=== PATIENT | female | born 1985 | race Caucasian/White ===

== ENCOUNTER 2017-01-13 08:49 | Emergency (ER) | payer OTHER ==
[~2017-01-13] VITALS: Ht 167.6 cm; Wt 85.6 kg
[2017-01-13 08:54] VITALS: TEMP 36.9; Ht 167.6 cm; Wt 85.6 kg
[2017-01-13 09:28] VITALS: O2SAT 96
[2017-01-13 09:55] LABS: BASO % 0.3 %; BASO ABS # 0.03 K/uL (0-0.2); COMPLETE YES; EOS % 0.3 %; HEMATOCRIT 38.1 % (37-47); IG% 0.3 %; LYMPH ABS # 1.34 K/uL (1.2-3.4); MEAN CELL VOLUME 84.5 fL (80-100); MEAN CORPUSCULAR HEMOGLOBIN 27.9 pg (25-34); MEAN CORPUSCULAR HGB CONC 33.1 g/dl (32-36); MEAN PLATELET VOLUME 10.8 fL (7.4-10.4); MONO % 7.6 %; NEUT % 77.5 %; PLATELET COUNT 338 K/uL (130-400); RED BLOOD COUNT 4.51 M/uL (4.2-5.4); WHITE BLOOD COUNT 9.57 K/uL (4.8-10.8)
[2017-01-13] MEDS ORDERED: MULT-506 PO (09:56)
[2017-01-13] MEDS ORDERED: FIBE1CAP PO (09:56)
[2017-01-13] MEDS ORDERED: FOLI1TAB7 PO (09:56)
[2017-01-13 10:03] LABS: PARTIAL THROMBOPLASTIN RATIO 1.1; PROTHROMBIN TIME (PATIENT) 10.7 SECONDS (9.0-12.0)
[2017-01-13 10:17] LABS: BUN/CREATININE RATIO 9.5 (10-20); CALCIUM 8.4 mg/dl (8.5-10.1); CREATININE 0.55 mg/dl (0.60-1.20); POTASSIUM 3.4 mmol/L (3.5-5.1)
[2017-01-13 10:32] LABS: ALB/GLOB RATIO 0.7 (0.9-2)
[2017-01-13] MEDS ORDERED: POTASSIUM CHLORIDE 10 MEQ TABCR PO STA (10:35)
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
[2017-01-13 11:22] VITALS: BP 110/67; PULSE 74; O2SAT 100
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
== END 2017-01-13 11:36 | disposition home or self-care (01) ==
LOC: C.EDB 08:51
DX: R51 Headache (principal); O26.892 Other specified pregnancy related conditions, second trimester; Z3A.26 26 weeks gestation of pregnancy; Z87.891 Personal history of nicotine dependence; Z79.899 Other long term (current) drug therapy; V43.52XA Car driver injured in collision with other type car in traffic accident, initial encounter

== ENCOUNTER 2017-01-13 11:42 | Outpatient (CLI) | payer OTHER ==
[~2017-01-13] VITALS: Ht 167.6 cm; Wt 85.5 kg
[~2017-01-13 11:42] MED LIST: FIBE1CAP PO; FOLI1TAB7 PO; MULT-506 PO
[2017-01-13 12:23] VITALS: Ht 167.6 cm; Wt 85.5 kg
[2017-01-13] MEDS ORDERED: LACTATED RINGER'S 1000ML 500 ML IV ONE (13:40)
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
== END 2017-01-13 15:35 | disposition home or self-care (01) ==
LOC: C.LD 11:42 → C.OPB 11:42
PROVIDERS: ATTEND Obstetrics & Gynecology
DX: O62.9 Abnormality of forces of labor, unspecified (principal); V43.52XA Car driver injured in collision with other type car in traffic accident, initial encounter; Z3A.26 26 weeks gestation of pregnancy

== ENCOUNTER 2017-04-22 07:32 | Inpatient (IN) | payer BC ==
[~2017-04-22] VITALS: Ht 167.6 cm; Wt 93.2 kg
[2017-04-22] MEDS ORDERED: OXYTOCIN 30 UNITS/500ML NSS IV ONE (08:16)
[2017-04-22] MEDS ORDERED: LACTATED RINGER'S 1000ML 1,000 ML IV SCH (08:41)
[2017-04-22] MEDS ORDERED: BENZOCAINE 20% AER SPR 82.5 GM CAN EXT PRN (08:45)
[2017-04-22] MEDS ORDERED: OXYCODONE/ACETAMINOPHEN 5-325 TAB PO PRN (08:45)
[2017-04-22] MEDS ORDERED: ACETAMINOPHEN 325 MG TAB PO PRN (08:45)
[2017-04-22] MEDS ORDERED: HYDROCORTISONE ACETATE 25 MG SUPP PR PRN (08:45)
[2017-04-22] MEDS ORDERED: OXYTOCIN 30 UNITS/500ML NSS IV PRN (08:45)
[2017-04-22] MEDS ORDERED: SUPERCREAM 0.870 % 15GM JAR EXT PRN (08:45)
[2017-04-22] MEDS ORDERED: LANOLIN OINT EXT PRN ×2 (08:45)
[2017-04-22] MEDS ORDERED: ACETAMINOPHEN/CODEINE 300/30MG TAB PO PRN ×2 (08:45)
--- NOTE | 2017-04-22 08:52 | Progress Note ---
Progress Note Date of Service Apr 22, 2017. Progress Note labor Note Pt arrived at L&D in labor FHR; CAT1 Ctx 1-2mins VE Ant lip/100/-1 station with urge to push IV access obtained, AROM- clear Pt pushed and quickly delivered details of delivery is in delivery Note
--- NOTE | 2017-04-22 08:57 | HISTORY & PHYSICAL EXAMINATION ---
DATE OF ADMISSION: 04/22/2017 HISTORY OF PRESENT ILLNESS: The patient is a 31-year-old G3, P2, due date 04/20/2017 making her 40 weeks and 2 days who presented to labor and delivery in labor. On arrival to labor and delivery she had no shortness of breath, no chills, no fever. Pelvic exam done showed she was 9 cm dilated, 100% effaced and -1 station. She was immediately admitted in anticipation of labor. heart rate was category 1. COURSE: Has been unremarkable. LABS: Blood type is Rh positive, GBS negative. HIV, RPR all nonreactive. PAST MEDICAL HISTORY: Unremarkable. PAST SURGICAL HISTORY: Unremarkable. 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 ALLERGIES: THE PATIENT IS ALLERGIC TO SULFA DRUGS. PHYSICAL EXAMINATION: GENERAL: Well-developed, well-nourished white female in no acute distress. HEART: S1, S2, regular rhythm and rate. LUNGS: Clear to auscultation bilaterally. HEART: S1, S2, regular rhythm and rate. ABDOMEN: Gravid. heart rate is category 1. PELVIC EXAMINATION: 9 cm, 70%, -1 station. EXTREMITIES: No cyanosis, clubbing or edema. ASSESSMENT AND PLAN: A 31-year-old G3, P2 at 40 and 2 weeks in labor. Plan is to admit patient and anticipate vaginal delivery.
--- NOTE | 2017-04-22 09:08 | DELIVERY SUMMARY ---
DELIVERY NOTE DATE OF DELIVERY: 04/22/2017 The patient delivered a live male in left occiput anterior presentation. There was no nuchal cord. There was terminal meconium. Cord blood was obtained as well as cord gas. The infants Apgars 8 and 9. Placenta was spontaneously delivered. On inspection of the placenta appeared grossly normal. Estimated blood loss 400 mL. Inspection of the perineum shows a midline first degree laceration, which required 2 stitches of 2-0 Vicryl. There was good hemostasis. All instruments were removed from the vagina and accounted for x2 including sponges and stitches. The patient is doing well as well as infant is stable in recovery. I attest to the content of the Intraoperative Record and any orders documented therein. Any exceptions are noted below. TAID
[2017-04-22 09:27] LABS: HEMATOCRIT 36.2 % (37-47); MEAN CELL VOLUME 80.4 fL (80-100); MEAN CORPUSCULAR HGB CONC 32.3 g/dl (32-36); MEAN PLATELET VOLUME 10.8 fL (7.4-10.4); PLATELET COUNT 250 K/uL (130-400); WHITE BLOOD COUNT 17.21 K/uL (4.8-10.8)
[2017-04-22 10:18] VITALS: Ht 167.6 cm; Wt 93.2 kg
[2017-04-22 15:25] VITALS: BP 108/67; PULSE 76; TEMP 36.7
[2017-04-22] MEDS: DOCUSATE SODIUM 100 MG CAP PO SCH (19:35)
[2017-04-22 19:40] VITALS: BP 119/75; PULSE 90; TEMP 36.8; O2SAT 98
[2017-04-22 23:30] VITALS: BP 122/78; PULSE 83; TEMP 36.6; O2SAT 98
[2017-04-22] MEDS: IBUPROFEN 600 MG TAB PO PRN (23:37)
[2017-04-23 04:00] VITALS: BP 109/60; PULSE 67; TEMP 36.7; O2SAT 98
--- NOTE | 2017-04-23 07:00 | OB/GYN Progress Note ---
EMERGENCY REGISTRAR Progress Note Date of Service Apr 23, 2017. Subjective conversation w/ patient, physical exam Ambulation: ambulating normally Voiding: no voiding problems Passing Gas: Yes Diet Tolerance: Regular Diet Lochia: Moderate Review of Systems Constitutional: No fever, No chills, No sweats, No weight loss, No weakness, No fatigue, No problem reported Respiratory: No cough, No sputum, No wheezing, No shortness of breath, No dyspnea on exertion, No dyspnea at rest, No hemoptysis, No problem reported Cardiac: No chest pain, No orthopnea, No PND, No edema, No claudication, No palpitations, No problem reported Breast: No see HPI, No breast lump, No change in shape, No nipple discharge, No breast pain, No problem reported Abdomen: No pain, No nausea, No vomiting, No diarrhea, No constipation, No GI bleeding, No problem reported Female : No see HPI, No dysuria, No urinary frequency, No hematuria, No incontinence, No abnormal vaginal bleeding, No vaginal discharge, No problem reported Objective Vital Signs Date Time Temp Pulse Resp B/P (MAP) Pulse Ox O2 Delivery O2 Flow Rate FiO2 04/23/17 04:00 36.7 67 16 109/60 (76) 98 Room Air 04/22/17 23:30 36.6 83 18 122/78 (93) 98 Room Air 04/22/17 23:30 Room Air 04/22/17 19:40 Room Air 04/22/17 19:40 36.8 90 16 119/75 (90) 98 Room Air 04/22/17 15:25 Room Air 04/22/17 15:25 36.7 76 20 108/67 (81) Room Air 04/22/17 11:22 Room Air Physical Exam General Appearance: WELL-APPEARING, WD/WN, NO APPARENT DISTRESS Respiratory/Chest: chest non-tender, lungs clear, normal breath sounds, no respiratory distress, no accessory muscle use Cardiovascular: regular rate, rhythm, no edema, no gallop, no JVD, no murmur Abdomen: normal bowel sounds, non tender, soft, no organomegaly, no pulsatile mass Fundus: Firm Extremities: normal range of motion, non-tender, normal inspection, no pedal edema, no calf tenderness Laboratory Results Last 24 Hours Test 04/22/17 09:04 White Blood Count 17.21 K/uL Red Blood Count 4.50 M/uL Hemoglobin 11.7 g/dL Hematocrit 36.2 % Mean Corpuscular Volume 80.4 fL Mean Corpuscular Hemoglobin 26.0 pg Mean Corpuscular Hemoglobin Concent 32.3 g/dl RDW Standard Deviation 42.5 fL RDW Coefficient of Variation 14.7 % Platelet Count 250 K/uL Mean Platelet Volume 10.8 fL Assessment and Plan Day Number: 1 Continue Routine Care: day #1 Pt doiong well No complaints disch PM after baby is discharged
[2017-04-23] MEDS ORDERED: MTR600X PO (07:01)
--- NOTE | 2017-04-23 07:02 | Discharge Instructions ---
Discharge Instructions Date of Service Apr 23, 2017. Admission Reason for Admission: Check Labor Discharge Discharge Diagnosis / Problem: Discharge Goals Goal(s): Routine recovery after delivery Activity Recommendations Activity Limitations: as noted below ACTIVITY RECOMMENDATIONS: * Gradual return to full activity over the next 2-3 weeks. * No lifting - nothing heavier than baby over the next 2-3 weeks. * Do not engage in vigorous exercise, sexual activity or sports until cleared by your physician. * Do not drive or operate any motorized equipment until cleared by your physician. * You may shower/bathe daily. BREAST CARE: If you are not breast feeding: * Wear a supportive bra 24 hours a day for one to two weeks. * Avoid stimulating your breasts and nipples as much as possible during the first few weeks after delivery. * When taking a shower, have the warm water hit your back, not breasts. * When your breasts feel full, apply ice packs. Usually three to four times a day helps ease the discomfort. * Take a mild pain medication (Tylenol/Motrin) when you are uncomfortable. If breast feeding: * Use breast milk to lubricate nipples. Lansinoh cream may be used for sore nipples. You do not need to remove cream prior to breast feeding. If using a different brand of cream, check the label for directions regarding removal of cream prior to nursing. * Wear a supportive bra. * If having problems with breasts or breast feeding, call a domestic travel consultant or your health care provider. EPISIOTOMY CARE: After delivery, if you have an episiotomy (stitches), the following steps will ease discomfort and aid healing. * For the first 24 hours after delivery, place ice packs next to your episiotomy to help reduce swelling. * After the first 24 hour-period, sitz baths, either portable or in the tub, are suggested. A shower with a shower arm sprayed over the episiotomy may be comforting. * Candy care should be done after each voiding and bowel movement. Squirt warm water from a plastic bottle over the perineum (region of the body between the anus and urinary opening) and pat dry. * Use Dermoplast to ease discomfort. Shake container. [place] directly over the episiotomy. * Place a Tucks on a clean sanitary pad next to your episiotomy. OVER THE COUNTER MEDICATION: * For discomfort or pain, you may use Acetaminophen (Tylenol), Ibuprofen (Advil ), or Naproxen (Aleve) following the package directions. * For constipation you may use Colace following the package directions. SPECIAL CARE INSTRUCTIONS: When you are discharged from the hospital, it is important for you to follow the instructions listed below: * During the first week at home, you should be able to care for yourself and your baby. In addition, the usual light household activities are encouraged. * Limit your activities to the way you feel. Do not try to clean the house or move furniture. Be sensible. * If you actively engage in sports and have done so up until the time of your delivery, you may resume these activities as soon as you feel able. This may take up to one month or even longer. Use good judgment. * Continue to take your vitamins for at least six weeks after the of your baby. * Your diet need not be limited unless you were on a special diet before your delivery. Breast-feeding mothers need around 2500 calories per day and at least 64-80 ounces of fluid per day (8 to 10 glasses). * You should eat foods from the four major food groups. Crash diets or fad diets are to be avoided. Eating lean meats, fresh fruits and vegetables, low-fat dairy products, high fiber foods and a regular exercise program, will help you get back to your pre- weight without putting your health at risk. * Constipation is sometimes a problem after delivery. Take a mild laxative as needed. If breast feeding, Milk of Magnesia is acceptable to use. You may use a suppository or Fleets enema if no episiotomy. * A daily shower or tub bath is suggested. Be sure to thoroughly and gently dry the perineum. * A bloody vaginal discharge will usually continue until around four weeks post . A small amount of bleeding may continue for as long as six weeks. Vaginal discharge changes from the bright red bleeding after delivery to pink then brownish and finally yellowish-pink before becoming white and disappearing. * Bleeding may increase with activity. Your first period may come in 4-8 weeks. If you are breast feeding, your period may be delayed even longer. * [place] (sex) can begin whenever both you and your partner feel comfortable and do not have any form of genital infection. It is recommended that you wait until after your return appointment and discuss with your physician. If you have questions, please talk to your health care practitioner. A condom should be used to prevent infection and . * Foreplay, gentle intercourse and lubrication is very important the first several times to prevent pain. A water-based lubricant such as K-Y jelly or Astroglide may be used. * Tampons may be used six weeks after delivery. * Douching should be avoided for 6 weeks after delivery. * If you have RH negative blood and your baby is RH positive, you will receive RHOGAM by injection prior to discharge. The nurse will give you a card to keep with you that has the date and place that you received RHOGAM after delivery. * During your care, you had a Rubella screen done to check for the presence of rubella antibodies in your blood. If your test was negative, you will receive a Rubella vaccine prior to discharge. This vaccine may cause a fever, soreness at the injection site and flu-like symptoms. If these symptoms persist, notify your health care practitioner. is not advised for three months after a Rubella vaccine. There is a higher chance of having a baby with defects if conceived within three months of getting the vaccine. * If you were discharged 24 hours from delivery or before 48 hours: Visiting nurses will come to your home 48 hours after discharge to assess you and your baby. The visiting nurse will meet with you while you are in the hospital to arrange a time and get directions to your home. * Verbalizes understanding of car seat law as reviewed with patient nursing. * Car Seat hand-out given and reviewed with patient by nursing. * Shaken baby information reviewed with patient by nursing. Call you doctor if: * Heavy bleeding (saturating several pads an hour) or passing clots the size of your fist. * A fever >101 degrees F (38.3 degrees C) on two occasions four hours apart and/or chills. * Unusual pain in the pelvic or vaginal areas. * "Baby Blues" lasting longer than two weeks. If you have any questions or concerns, call your health care practitioner at . FOLLOW-UP VISIT: * Please call the office at to schedule a 6 week examination. It is important you keep this appointment. * It is important for you to make arrangements for either yearly or twice yearly check-ups thereafter. . Current Hospital Diet Patient's current hospital diet: Regular OB Diet Discharge Diet Recommended Diet: Regular Diet Pending Studies Studies pending at discharge: no Medical Emergencies . Who to Call and When: Medical Emergencies: If at any time you feel your situation is an emergency, please call 911 immediately. . Non-Emergent Contact Non-Emergency issues call your: Specialist . . "Provider Documentation" section prepared by Ace Laguerre. . VTE Core Measure Inpt VTE Proph given/why not?: Treatment not indicated
[2017-04-23 07:45] VITALS: BP 123/77; PULSE 85; TEMP 36.5
[2017-04-23] MEDS ORDERED: PRENATAL VITAMIN TAB PO SCH (08:00)
[2017-04-23] MEDS ORDERED: FERROUS SULFATE 325 MG TAB PO SCH (08:00)
[2017-04-23] MEDS: DOCUSATE SODIUM 100 MG CAP PO SCH (08:35)
[2017-04-23] MEDS: IBUPROFEN 600 MG TAB PO PRN (08:36)
[2017-04-23 10:14] VITALS: BP_DIAS 77; PULSE 85; TEMP 36.5
[2017-04-23] MEDS ORDERED: BISACODYL 5 MG TABEC PO SCH (20:00)
[2017-04-24] MEDS ORDERED: BISACODYL 10 MG SUPP PR PRN (07:00)
== END 2017-04-23 14:31 | disposition home or self-care (01) | DRG 775 ==
LOC: C.LD 07:32 → C.OPB 07:32 → C.LD 08:30 → C.OBG 11:08
PROVIDERS: ADMIT Obstetrics & Gynecology; ATTEND Obstetrics & Gynecology
PROC: 0HQ9XZZ Repair Perineum Skin, External Approach (ICD-10-PCS; principal; 2017-04-22)
PROC: 10E0XZZ Delivery of Products of Conception, External Approach (ICD-10-PCS; principal; 2017-04-22)
DX: O48.0 Post-term pregnancy (principal); Z37.0 Single live birth; O70.0 First degree perineal laceration during delivery; O77.0 Labor and delivery complicated by meconium in amniotic fluid; Z3A.40 40 weeks gestation of pregnancy